=== PATIENT | female | born 1990 | race Two or more races ===

== ENCOUNTER → 2020-05-03 | Emergency (ER) | payer SELFPAY ==
[~2020-05-03] VITALS: Ht 154.9 cm; Wt 44.5 kg
[~2020-05-03] MED LIST: ALPRAZolam 0.5 MG TAB PO ONE; AMMONIA 0.33 ML INHALANT IN ONE
[2020-05-03 02:17] VITALS: BP 122/81
[2020-05-03 04:21] LABS: Alcohol, Urine < 3.0 mg/dL (0-10); Amphetamine Screen, Urine NEGATIVE (NEGATIVE); Barbiturate Scree,Urine NEGATIVE (NEGATIVE); Benzodiazephine Screen, Urine NEGATIVE (NEGATIVE); Cannabinoid Screen, Urine NEGATIVE (NEGATIVE); Cocaine Screen, Urine NEGATIVE (NEGATIVE); Opiate Scree,Urine NEGATIVE (NEGATIVE); Phencyclidine Screen, Urine NEGATIVE (NEGATIVE)
[2020-05-03 06:40] LABS: Basophils # (auto) 0 10 ^3/uL (0-0.2); Basophils % (auto) 0.7 % (0.0-2.0); Eosinophils # (auto) 0 10 ^3/uL (0-0.8); Eosinophils % (auto) 0.4 % (0.0-7.0); Hematocrit 40.4 % (36.0-46.0); Lymphocytes # (auto) 1.2 10 ^3/uL (0.4-5.4); Lymphocytes % (auto) 17.6 % (10.0-50.0); Mean Corpuscular Hemoglobin 31.9 pg (28.0-32.0); Mean Corpuscular Hgb Conc. 32.1 g/dL (32.0-36.0); Mean Corpuscular Volume 99.3 fL (80.0-100.0); Monocytes # (auto) 0.9 10 ^3/uL (0-1.3); Monocytes % (auto) 13.2 % (0.0-12.0); Neutrophils # (auto) 4.6 10 ^3/uL (1.6-8.6); Neutrophils % (auto) 68.1 % (37.0-80.0); Platelet Count (auto) 253 10^3/uL (140-450); Red Blood Cells 4.07 10^6/uL (4.0-5.20); Red Cell Distribution Width 15.8 % (11.8-14.3); White Blood Cell 6.8 10^3/uL (4.4-10.8)
[2020-05-03 07:00] LABS: Salicylate < 1.7 mg/dL (2.8-20.0)
[2020-05-03 07:01] LABS: Potassium 3.7 mmol/L (3.5-5.1)
[2020-05-03 07:11] LABS: Albumin 4.2 g/dL (3.4-5.0); BUN/Creatinine Ratio 10.6; Calcium 9.1 mg/dL (8.5-10.1); Total Protein 8.1 g/dL (6.4-8.2)
[2020-05-03 07:12] LABS: Acetaminophen < 2.0 ug/mL (10-30)
== END | disposition home or self-care (01) ==
LOC: ER 02:06
DX: S05.12XA Contusion of eyeball and orbital tissues, left eye, initial encounter (principal); T74.91XA Unspecified adult maltreatment, confirmed, initial encounter; Y08.89XA Assault by other specified means, initial encounter; Y93.89 Activity, other specified; Y92.89 Other specified places as the place of occurrence of the external cause; Y99.8 Other external cause status
CPT/HCPCS: 36415; 70450; 70486; 80053; 80307; 80329; 84443; 85025